=== PATIENT | female | born 1985 | race American Indian/Alaskan Native ===

== ENCOUNTER 2016-12-28 14:27 | Emergency (ER) | payer MEDICAID ==
[2016-12-28 14:40] VITALS: BP 135/99
[2016-12-28] MEDS ORDERED: TORADOL IM ONE (16:22)
[2016-12-28] MEDS ORDERED: FLEXERIL PO ONE (16:22)
--- NOTE | 2016-12-28 16:36 | Emergency Department Report ---
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 work MD Complaint: Injury to:: left Onset/Timin -: Sudden, hour(s) Other Extremity Injury: Shoulder: Left (pain tingling burning ) Other Injuries: none Place: work Severity scale (0 -10): 5 Improves With: immobilization Worsens With: movement of extremity Context: other (lift injury ) Associated Symptoms: weakness, other (tingling ) - Related Data Home Medications Medication Instructions Recorded Confirmed Last Taken Pnv62/FA/Om3/Dha/Epa/Fish Oil [[facility] 1 tab PO DAILY 07/12/13 08/24/13 07/11/13 12: 00 Gummy Vitamins] Previous Rx's Medication Instructions Recorded Last Taken Type Ibuprofen [Motrin] 800 mg PO Q8H #30 tablet 06/01/14 Unknown Rx methOCARBAMOL [Robaxin] 500 mg PO BID #30 tab 06/01/14 Unknown Rx traMADol [Ultram 50 MG tab] 50 mg PO Q6HR PRN #20 tablet 06/01/14 Unknown Rx ALBUTEROL Inhaler [ProAir HFA 2 puff IH QID PRN #1 inhalation 09/16/14 Unknown Rx Inhaler] Cyclobenzaprine [Flexeril] 10 mg PO TID PRN #30 tablet 12/28/16 Unknown Rx Naproxen [Naprosyn TAB] 500 mg PO BID PRN #60 tablet 12/28/16 Unknown Rx Allergies Allergy/AdvReac Type Severity Reaction Status Date / Time No Known Allergies Allergy Verified 12/28/16 14:40 ED Review of Systems ROS: Stated complaint: SEVERE LT SHOULDER/FOREARM/LT EAR PAIN Other details as noted in HPI Constitutional: denies: chills, fever Eyes: denies: eye pain, eye discharge, vision change ENT: denies: ear pain, throat pain Respiratory: denies: cough, shortness of breath, wheezing Cardiovascular: denies: chest pain, palpitations Endocrine: no symptoms reported Gastrointestinal: denies: abdominal pain, nausea, diarrhea Genitourinary: denies: urgency, dysuria, discharge Musculoskeletal: myalgia Skin: denies: rash, lesions Neurological: denies: headache, weakness, paresthesias Psychiatric: denies: anxiety, depression Hematological/Lymphatic: denies: easy bleeding, easy bruising ED Past Medical Hx - Past Medical History Hx Hypertension: No Hx Diabetes: No Hx Deep Vein Thrombosis: No Hx Renal Disease: No Hx Sickle Cell Disease: No Hx Seizures: No Hx Asthma: Yes (PRN albuterol inhaler) Hx HIV: No - Surgical History Past Surgical History?: No - Social History Smoking Status: Current Every Day Smoker Substance Use Type: None - Medications Home Medications: Home Medications Medication Instructions Recorded Confirmed Last Taken Type Pnv62/FA/Om3/Dha/Epa/Fish Oil [[facility] 1 tab PO DAILY 07/12/13 08/24/13 07/11/13 12: 00 History Gummy Vitamins] Ibuprofen [Motrin] 800 mg PO Q8H #30 tablet 06/01/14 Unknown Rx methOCARBAMOL [Robaxin] 500 mg PO BID #30 tab 06/01/14 Unknown Rx traMADol [Ultram 50 MG tab] 50 mg PO Q6HR PRN #20 tablet 06/01/14 Unknown Rx ALBUTEROL Inhaler [ProAir HFA 2 puff IH QID PRN #1 inhalation 09/16/14 Unknown Rx Inhaler] Cyclobenzaprine [Flexeril] 10 mg PO TID PRN #30 tablet 12/28/16 Unknown Rx Naproxen [Naprosyn TAB] 500 mg PO BID PRN #60 tablet 12/28/16 Unknown Rx ED Physical Exam - General Limitations: No Limitations General appearance: alert, in no apparent distress - Head Head exam: Present: atraumatic, normocephalic - Eye Eye exam: Present: normal appearance - ENT ENT exam: Present: mucous membranes moist - Neck Neck exam: Present: normal inspection - Respiratory Respiratory exam: Present: normal lung sounds bilaterally. Absent: respiratory distress - Cardiovascular Cardiovascular Exam: Present: regular rate, normal rhythm. Absent: systolic murmur, diastolic murmur, rubs, gallop - GI/Abdominal GI/Abdominal exam: Present: soft, normal bowel sounds - Rectal Rectal exam: Present: deferred - Extremities Exam Extremities exam: Present: tenderness, normal capillary refill. Absent: pedal edema, joint swelling, calf tenderness - Expanded Upper Extremity Exam Left Shoulder Exam: Present: tenderness, tenderness over AC joint. Absent: swelling , abrasion, laceration, ecchymosis, deformity, crepidus, dislocation, erythema Upper Arm exam: Present: normal inspection. Absent: full ROM, tenderness, swelling, abrasion, laceration, ecchymosis, deformity, crepidus, dislocation, erythema Elbow exam: Present: normal inspection, full ROM Forearm Wrist exam: Present: normal inspection, full ROM Hand Wrist exam: Present: normal inspection, full ROM Neuro motor exam: Present: wrist extension intact, thumb opposition intact, thumb IP flexion intact, thumb adduction intact, fingers 2-5 abduction intact Neurosensory exam: Present: 2-point discrimination, ulnar nerve intact, median nerve intact Vascular: Present: normal capillary refill, radial pulse, brachial pulse, ulnar pulse. Absent: vascular compromise, pulse deficit radial art, pulse deficit ulnar art, pulse deficit brachial art - Back Exam Back exam: Present: normal inspection - Neurological Exam Neurological exam: Present: alert, oriented X3 - Expanded Neurological Exam Expanded Patient oriented to: Present: person, place, time Speech: Present: fluid speech Cranial nerves: EOM's Intact: Normal, Gag Reflex: Normal, Tongue Deviation: Normal, Facial Sensation: Normal Cerebellar function: Finger to Nose: Normal, Heel to Mckeon: Normal, Romberg: Normal Upper motor neuron: Vadim Neglect: Normal, Pronator Drift: Normal, Babinski Sign : Normal, Sensory Extinction: Normal Sensory exam: Upper Extremity Light Touch: Normal, Upper Extremity Pin Prick: Normal, Upper Extremity Temperature: Normal, UE 2 Point Discrimination: Normal, Lower Extremity Light Touch: Normal, Lower Extremity Pin Prick: Normal, Lower Extremity Temperature: Normal, LE 2 Point Discrimination: Normal Motor strength exam: RUE: 5, LUE: 5, RLE: 5, LLE: 4 DTR: bicep (R): 2+, bicep (L): 2+, tricep (R): 2+, tricep (L): 2+, knee (R): 2+ , knee (L): 2+, ankle (R): 2+, ankle (L): 2+ Best Eye Response (Blair): (4) open spontaneously Best Motor Response ([place]): (6) obeys commands Best Verbal Response ([place]): (5) oriented Blair Total: 15 - Psychiatric Psychiatric exam: Present: normal affect, normal mood - Skin Skin exam: Present: warm, dry, intact, normal color. 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 Critical care attestation.: If time is entered above; I have spent that time in minutes in the direct care of this critically ill patient, excluding procedure time. ED Disposition Clinical Impression: Left shoulder strain Qualifiers: Encounter type: initial encounter Qualified Code(s): S46.912A - Strain of unspecified muscle, fascia and tendon at shoulder and upper arm level, left arm , initial encounter Disposition: DC-01 TO HOME OR SELFCARE Is pt being admited?: No Does the pt Need Aspirin: No Condition: Good Instructions: Rotator Cuff Injury (ED) Prescriptions: Cyclobenzaprine [Flexeril] 10 mg PO TID PRN #30 tablet PRN Reason: Muscle Spasm Naproxen [Naprosyn TAB] 500 mg PO BID PRN #60 tablet PRN Reason: pain Referrals: EKTA BETHEA MD [Primary Care Provider] - 3-5 Days Forms: Work/School Release Form(ED) Time of Disposition: 17:36
--- NOTE | 2016-12-29 08:40 | XRay Report ---
LEFT SHOULDER RADIOGRAPHS INDICATION: Shoulder pain. COMPARISON: None similar. FINDINGS: Frontal and Y views of the left shoulder, 3 projections demonstrate normal humeral head contour, well positioned against the glenoid. Normal acromioclavicular joint. Preserved scapular contour. Normal visualized soft tissues, left ribs and lung. CONCLUSION: No acute left shoulder radiographic abnormality, as described. Thank you for the opportunity to participate in this patient's care.
== END 2016-12-28 17:45 | disposition home or self-care (01) ==
LOC: ED 14:27
DX: S46.912A Strain of unspecified muscle, fascia and tendon at shoulder and upper arm level, left arm, initial encounter (principal); J45.909 Unspecified asthma, uncomplicated; F17.210 Nicotine dependence, cigarettes, uncomplicated; X50.0XXA Overexertion from strenuous movement or load, initial encounter; Y93.89 Activity, other specified; Y92.89 Other specified places as the place of occurrence of the external cause; Y99.8 Other external cause status
CPT/HCPCS: 73030; 96372; 99283; J1885

== ENCOUNTER 2020-07-13 10:03 | Emergency (ER) | payer SELFPAY ==
[2020-07-13 10:22] VITALS: BP 155/95
--- NOTE | 2020-07-13 10:26 | Emergency Department Report ---
ED ENT HPI - General Chief complaint: Dental/Oral Stated complaint: TOOTHACHE/LT FACE NUMB Time Seen by Provider: 07/13/20 10:20 Source: patient Mode of arrival: Ambulatory Limitations: No Limitations - History of Present Illness Initial comments: Patient presents to the ER today complaining of left lower dental pain, dental swelling, and facial numbness. Patient states that the symptoms started a couple days ago. Patient states that she called and [facility] but given her complaint of facial numbness it was recommended that she come to the ER. Reports associated left ear pain and headache. She denies any fever or chills. She denies any trismus or drooling, or difficulty breathing or any other symptoms at this time MD complaint: tooth pain -: Sudden - Related Data Home Medications Medication Instructions Recorded Confirmed Last Taken Vits62/FA/Om3/Dha/Epa 1 tab PO DAILY 07/12/13 08/24/13 07/11/13 12:00 [[facility] Gummy Vitamins] Previous Rx's Medication Instructions Recorded Last Taken Type Ibuprofen [Motrin] 800 mg PO Q8H #30 tablet 06/01/14 Unknown Rx methOCARBAMOL [Robaxin] 500 mg PO BID #30 tab 06/01/14 Unknown Rx traMADoL [Ultram 50 MG tab] 50 mg PO Q6HR PRN #20 tablet 06/01/14 Unknown Rx Albuterol Mdi (or & Nicu Only) 2 puff IH QID PRN #1 inhalation 09/16/14 Unknown Rx [ProAir HFA Inhaler] Cyclobenzaprine [Flexeril] 10 mg PO TID PRN #30 tablet 12/28/16 Unknown Rx Clindamycin [Clindamycin CAP] 300 mg PO Q6H #40 capsule 07/13/20 Unknown Rx Naproxen [Naprosyn TAB] 500 mg PO BID PRN #60 tablet 07/13/20 Unknown Rx Allergies Allergy/AdvReac Type Severity Reaction Status Date / Time No Known Allergies Allergy Verified 12/28/16 14:40 ED Dental HPI - General Chief complaint: Dental/Oral Stated complaint: TOOTHACHE/LT FACE NUMB Time Seen by Provider: 07/13/20 10:20 Source: patient Mode of arrival: Ambulatory Limitations: No Limitations - Related Data Home Medications Medication Instructions Recorded Confirmed Last Taken Vits62/FA/Om3/Dha/Epa 1 tab PO DAILY 07/12/13 08/24/13 07/11/13 12:00 [[facility] Gummy Vitamins] Previous Rx's Medication Instructions Recorded Last Taken Type Ibuprofen [Motrin] 800 mg PO Q8H #30 tablet 06/01/14 Unknown Rx methOCARBAMOL [Robaxin] 500 mg PO BID #30 tab 06/01/14 Unknown Rx traMADoL [Ultram 50 MG tab] 50 mg PO Q6HR PRN #20 tablet 06/01/14 Unknown Rx Albuterol Mdi (or & Nicu Only) 2 puff IH QID PRN #1 inhalation 09/16/14 Unknown Rx [ProAir HFA Inhaler] Cyclobenzaprine [Flexeril] 10 mg PO TID PRN #30 tablet 12/28/16 Unknown Rx Clindamycin [Clindamycin CAP] 300 mg PO Q6H #40 capsule 07/13/20 Unknown Rx Naproxen [Naprosyn TAB] 500 mg PO BID PRN #60 tablet 07/13/20 Unknown Rx Allergies Allergy/AdvReac Type Severity Reaction Status Date / Time No Known Allergies Allergy Verified 12/28/16 14:40 ED Review of Systems ROS: Stated complaint: TOOTHACHE/LT FACE NUMB Other details as noted in HPI Comment: All other systems reviewed and negative Constitutional: denies: chills, fever ENT: ear pain, dental pain, other Respiratory: denies: cough, shortness of breath, wheezing Cardiovascular: denies: chest pain, palpitations Neurological: numbness (Left face) ED Past Medical Hx - Past Medical History Previous Medical History?: Yes Hx Hypertension: No Hx Diabetes: No Hx Deep Vein Thrombosis: No Hx Renal Disease: No Hx Sickle Cell Disease: No Hx Seizures: No Hx Asthma: Yes (PRN albuterol inhaler) Hx HIV: No - Surgical History Past Surgical History?: Yes - Social History Smoking Status: Never Smoker Substance Use Type: None - Medications Home Medications: Home Medications Medication Instructions Recorded Confirmed Last Taken Type Vits62/FA/Om3/Dha/Epa 1 tab PO DAILY 07/12/13 08/24/13 07/11/13 12:00 History [[facility] Gummy Vitamins] Ibuprofen [Motrin] 800 mg PO Q8H #30 tablet 06/01/14 Unknown Rx methOCARBAMOL [Robaxin] 500 mg PO BID #30 tab 06/01/14 Unknown Rx traMADoL [Ultram 50 MG tab] 50 mg PO Q6HR PRN #20 tablet 06/01/14 Unknown Rx Albuterol Mdi (or & Nicu Only) 2 puff IH QID PRN #1 inhalation 09/16/14 Unknown Rx [ProAir HFA Inhaler] Cyclobenzaprine [Flexeril] 10 mg PO TID PRN #30 tablet 12/28/16 Unknown Rx Clindamycin [Clindamycin CAP] 300 mg PO Q6H #40 capsule 07/13/20 Unknown Rx Naproxen [Naprosyn TAB] 500 mg PO BID PRN #60 tablet 07/13/20 Unknown Rx ED Physical Exam - General Limitations: No Limitations General appearance: alert, in no apparent distress - Head Head exam: Present: atraumatic, normocephalic, normal inspection - Eye Eye exam: Present: normal appearance, PERRL, EOMI Pupils: Present: normal accommodation - ENT ENT exam: Present: normal exam, mucous membranes moist, other (Moderate tenderness to palpation to the first molar in the left lower jaw with associated mild gum swelling, no obvious fluctuance or pointing noted. There is some mild swelling to the left lower jaw without any cellulitis, no trismus or drooling) - Neck Neck exam: Present: normal inspection. Absent: meningismus - Respiratory Respiratory exam: Absent: respiratory distress - Cardiovascular Cardiovascular Exam: Present: regular rate - Neurological Exam Neurological exam: Present: alert, oriented X3, CN II-XII intact. Absent: motor sensory deficit - Psychiatric Psychiatric exam: Present: normal affect, normal mood - Skin Skin exam: Present: intact ED Course Vital Signs 07/13/20 10:20 Temperature 98.9 F Pulse Rate 72 Respiratory 18 Rate Blood Pressure 155/95 O2 Sat by Pulse 99 Oximetry ED Medical Decision Making - Medical Decision Making Patient likely with a small dental abscess to the left lower jaw; there is no cellulitis, no trismus, no drooling, no evidence of Conner's, patient airways intact, and she is awake alert oriented x3 and neurologically intact. No meningeal signs on exam. She is not toxic appearing, not ill-appearing, not in any distress. Discussed dx and tx plan with patient. She expressed understanding of instructions and agree with plan. She was stable at time of discharge. Critical care attestation.: If time is entered above; I have spent that time in minutes in the direct care of this critically ill patient, excluding procedure time. ED Disposition Clinical Impression: Dental abscess Disposition: TO HOME OR SELFCARE Is pt being admited?: No Does the pt Need Aspirin: No Condition: Stable Instructions: Dental Abscess Additional Instructions: Keep your dental appointment for tomorrow. Take the medications as prescribed. Return to ED if symptoms changes or worsens. Prescriptions: Clindamycin [Clindamycin CAP] 300 mg PO Q6H #40 capsule Naproxen [Naprosyn TAB] 500 mg PO BID PRN #60 tablet PRN Reason: pain Referrals: PRIMARY CARE, [Primary Care Provider] - 3-5 Days Forms: Work/School Release Form(ED) Time of Disposition: 10:25
== END 2020-07-13 15:28 | disposition home or self-care (01) ==
LOC: ED 10:03
DX: K04.7 Periapical abscess without sinus (principal); J45.909 Unspecified asthma, uncomplicated; Z79.899 Other long term (current) drug therapy
CPT/HCPCS: 99281